=== PATIENT | female | born 1965 | race Two or more races ===

== ENCOUNTER 2021-12-21 12:17 | Emergency (ER) | payer OTHER, SELFPAY ==
--- NOTE | 2021-12-21 12:33 | ED.GENADULT ---
HPI - General Adult General Chief complaint: Nausea/Vomiting/Diarrhea Stated complaint: diarrhea Source: patient Mode of arrival: ambulatory Limitations: no limitations History of Present Illness HPI narrative: Ms. Carr is a 56-year-old female patient presenting to the clinic today with complaints of weakness, body aches, diarrhea x 3 days. She reports she has had Covid prior when Covid first began 2 years ago. 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 No known exposure to Covid recently as far as patient is aware. Reports she has had 3 diarrhea stools today. denies any blood in her stool. Denies any known fever or abdominal pain. No recent weight loss. Related Data Home Medications Medication Instructions Recorded Confirmed No Home Medications 12/21/21 12/21/21 Allergies Allergy/AdvReac Type Severity Reaction Status Date / Time No Known Allergies Allergy Verified 12/21/21 12:37 Review of Systems Review of Systems: Pertinent positives per HPI. Patient denies any fever, chills, rash, headache, visual changes, dizziness, cough, runny nose, sore throat, shortness of breath, chest pain, palpitations, constipation, abdominal pain, nausea, vomiting or any urinary issues. PMFSH Comments At the time of my signature, I reviewed and agree with the nursing past medical, surgical, social, and family history. There is no relevant family history pertinent to the patient complaint. Exam Narrative: General: Well-developed, well nourished, in no apparent distress. Mouth: Oropharynx without lesions or mass, no inflammation, mucous membranes dry Cardio: Regular rate and rhythm, s1 and s2 normal, no murmur appreciated. Resp: Clear to auscultation bilaterally, no rhonchi, rales, wheezing or rubs. Abdomen: Soft, pliable, bowel sounds present in all quadrants, mild general tenderness to the right side of the abdomen. Negative McBurney's point. Negative Huitron, no rebound tenderness, no organomegly, no CVAT tenderness. Course Course Emergency Course: Portions of this record may have been created with voice recognition software. Level of Care: Express Care Visit Vital Signs Vital signs: Vital signs reviewed Medical Decision Making MDM Narrative Medical decision making narrative: Covid testing and urinalysis performed in the clinic. Urinalysis completed to rule out dehydration. UA shows specific gravity greater than 1.030. Negative for ketones. Positive for proteinuria and hematuria. Will send for culture to rule out UTI. No antibiotics at this time. Covid testing is negative in the clinic. Differential Diagnosis Differential Diagnosis: Viral enteritis, COVID-19, infectious diarrhea, moderate to severe dehydration Discharge Plan Discharge Clinical Impression: Mild dehydration, Acute diarrhea, Generalized weakness Patient Disposition: Home, Self-Care Condition: Stable Instructions: Antibiotic Form Additional Instructions: General weakness likely caused by mild dehydration. Covid testing is negative the clinic Urinalysis positive for protein and blood. Will send for urine culture to rule out urinary tract infection May take Imodium for diarrhea as directed as long as there is no blood in stool. Increase fluids and stay well hydrated. Gatorade,water, power aide. Tylenol/motrin for pain/fever BRAT diet for diarrhea Clear liquids x 24 hours then advance as tolerated for nausea/vomiting May return to the clinic if symptoms worsen Go to the ED if you develop worsening of dehydration, weakness, lethargy, shortness of breath, chest pain, high fever, or abdomen pain. Follow up with your PCP in 3-5 days if symptoms persist. May need stool studies completed at that time to rule out infectious diarrhea. Prescriptions: No Action No Home Medications RF: 0 Follow-up/Referrals: UNKNOWN,DOCTOR [Primary Care Provider] - Time of Disposition: 13:10 Quality
[2021-12-21 12:37] VITALS: BP 120/60; PULSE 83; RESP 18; TEMP 36.7; O2SAT 100
== END 2021-12-21 13:13 | disposition home or self-care (01) ==
PROVIDERS: Emergency Provider Nurse Practitioner Family
DX: E86.0 Dehydration (principal); R19.7 Diarrhea, unspecified; R53.1 Weakness; Z20.822 Contact with and (suspected) exposure to COVID-19
CPT/HCPCS: 81003; 87086; 87426; 99203; C9803; G0463